=== PATIENT | female | born 2000 ===

== ENCOUNTER 2020-04-12 07:10 | Outpatient (CLI) | payer BC ==
--- NOTE | 2020-04-12 07:37 | ULT ---
ULTRASOUND ABDOMEN COMPLETE: DATE: 04/12/2020 HISTORY: 19-year-old female with nausea and vomiting FINDINGS: Gallbladder: Normal wall thickness. No gallstones or sludge identified. No pericholecystic fluid. Liver: Normal parenchymal echogenicity. Bilateral kidneys: No hydronephrosis. Pancreas: Nonspecific sonographic appearance. Common duct caliber: 4 mm. Abdominal aorta: No aneurysm Inferior vena cava: Unremarkable where visualized. Spleen: No splenomegaly IMPRESSION: Normal.
== END 2020-04-12 07:11 | disposition home or self-care (01) ==
LOC: BICULT 07:10
PROVIDERS: ATTEND Internal Medicine
DX: R11.2 Nausea with vomiting, unspecified (principal)
CPT/HCPCS: 93975